=== PATIENT | male | born 1990 | race Caucasian/White ===

== ENCOUNTER 2020-05-16 09:31 | Emergency (ER) | payer MEDICARE, MEDICAID ==
[~2020-05-16] VITALS: Ht 198.1 cm; Wt 100.0 kg
[~2020-05-16 09:31] MED LIST: DICLOFENAC SODI75 MG PO; NERVE PILL PO; NO HOME MEDICATIONS; NORCO 325 MG-51 TA1 PO; PAIN PILL
[2020-05-16 10:56] LABS: URINE APPEARANCE CLEAR; URINE BILIRUBIN NEGATIVE (NEGATIVE); URINE BLOOD NEGATIVE (NEGATIVE); URINE COLOR YELLOW; URINE GLUCOSE NEGATIVE (NEGATIVE); URINE KETONE NEGATIVE (NEGATIVE); URINE LEUKOCYTE ESTERASE NEGATIVE (NEGATIVE); URINE MUCUS PRESENT (NOT PRESENT); URINE NITRATE NEGATIVE (NEGATIVE); URINE PROTEIN(semi-quant) NEGATIVE (NEGATIVE); URINE UROBILINOGEN NORMAL (NORMAL); URINE WBC 0-1 /hpf (0-3)
[2020-05-16] MEDS ORDERED: CYCLOBENZAPRINE10 M1 PO (12:24)
[2020-05-16 12:47] VITALS: BP 112/74
== END 2020-05-16 12:30 | disposition home or self-care (01) ==
LOC: ED 09:31
PROVIDERS: Physician Assistant
DX: M54.9 Dorsalgia, unspecified (principal); Z88.0 Allergy status to penicillin; F17.220 Nicotine dependence, chewing tobacco, uncomplicated; R40.2410 Glasgow coma scale score 13-15, unspecified time; Z86.73 Personal history of transient ischemic attack (TIA), and cerebral infarction without residual deficits; V86.05XA Driver of 3- or 4- wheeled all-terrain vehicle (ATV) injured in traffic accident, initial encounter
CPT/HCPCS: J1885; J2360